=== PATIENT | male | born 1970 | race Caucasian/White ===

== ENCOUNTER 2020-07-25 12:13 | Emergency (ER) | payer MEDICAID, OTHER ==
[~2020-07-25] VITALS: Ht 177.8 cm; Wt 68.0 kg
[2020-07-25] MEDS ORDERED: SODIUM CHLORIDE 0.9% 1,000 ML IV ONE (13:00)
[2020-07-25] MEDS ORDERED: LORAZEPAM 2MG/ML CPJ IV ONE (13:00)
[2020-07-25] MEDS ORDERED: MECLIZINE 25MG TABLET PO ONE (13:00)
[2020-07-25 13:09] LABS: HEMATOCRIT. 42.6 % (42.0-52.0); HEMOGLOBIN. 14.5 g/dL (14.0-18.0); MEAN CORPUSCULAR HEMOGLOBIN 30.8 pg (28.0-32.0); MEAN CORPUSCULAR VOLUME 90.7 fL (80.0-94.0); MEAN PLATELET VOLUME 9.7 fl (7.4-10.4); PLATELET 225 x1000/uL (130-400); RED CELL DISTRIBUTION WIDTH 12.8 % (11.6-14.6)
[2020-07-25 13:10] LABS: CHLORIDE 105 mEq/L (98-107)
[2020-07-25 13:35] LABS: PLATELET ESTIMATE NORMAL
[2020-07-25] MEDS ORDERED: MECL-159 MT (15:59)
[2020-07-25] MEDS ORDERED: CARB15DR63 EACH EAR (15:59)
[2020-07-25 16:25] VITALS: BP 126/72
== END 2020-07-25 16:30 | disposition home or self-care (01) ==
LOC: ER 12:13
DX: R42 Dizziness and giddiness (principal); R00.1 Bradycardia, unspecified; R55 Syncope and collapse; E86.0 Dehydration; Z79.899 Other long term (current) drug therapy
CPT/HCPCS: 36415; 71045; 80053; 84484; 85025; 96361; 96374; 99285; J2060; J7030; J8597; Z7610